=== PATIENT | male | born 1970 | race African-American/Black ===

== ENCOUNTER 2021-11-02 10:40 | Emergency (ER) | payer SELFPAY ==
[2021-11-02] MEDS ORDERED: predniSONE 20 MG TAB ONE (12:29)
[2021-11-02] MEDS ORDERED: Famotidine 20 MG TAB ONE (12:29)
== END 2021-11-02 12:52 | disposition home or self-care (01) ==
LOC: ERS 10:40
DX: L25.9 Unspecified contact dermatitis, unspecified cause (principal)
CPT/HCPCS: 99283; J7512

== ENCOUNTER 2021-12-15 22:07 | Emergency (ER) | payer SELFPAY ==
[2021-12-15 23:11] LABS: #Basophils 0.1 thou/uL (0.0-0.2); #Eosinphils 0.2 thou/uL (0.0-0.7); #Lymphocytes 2.6 thou/uL (1.20-3.40); #Monocytes 1.1 thou/uL (0.11-0.59); #Neutrophils 7.5 thou/uL (1.40-6.50); %Eosinophils 2.1 % (0.0-10.0); %Lymphocytes 22.6 % (21.0-51.0); %Monocytes 9.2 % (0.0-10.0); %Neutrophils 65.2 % (42.0-75.0); Hemoglobin 14.2 g/dL (14.0-18.0); Mean Corpuscular HGB CONC 32.3 g/dL (32.0-36.0); Mean Corpuscular Volume 89.7 fL (78.0-98.0); Mean Platelet Volume 6.7 fL (7.4-10.4); Platelet Count 282 thou/uL (130-400); RBC Distribution Width 12.9 % (11.5-14.5); Red Blood Cell (RBC) Count 4.91 mill/uL (4.70-6.10); White Blood Cell (WBC) Count 11.6 thou/uL (4.8-10.8)
[2021-12-16 00:41] LABS: ALT (SGPT) 29 U/L (8-55); AST (SGOT) 31 U/L (5-34); Albumin 3.9 g/dL (3.5-5.0); Alkaline Phosphatase 81 U/L (40-110); Anion Gap 15 mmol/L (10-20); BUN (Urea Nitrogen) 16 mg/dL (8.9-20.6); Bilirubin, Total 0.4 mg/dL (0.2-1.2); Calc. Creatinine Clearance 0 mL/min (70-130); Calcium 9.2 mg/dL (7.8-10.44); Carbon Dioxide 22 mmol/L (22-29); Chloride 107 mmol/L (98-107); Globulin 2.7 g/dL (2.4-3.5); Glucose 99 mg/dL (70-105); Potassium 4.1 mmol/L (3.5-5.1); Protein, Total 6.6 g/dL (6.0-8.3); Sodium 140 mmol/L (136-145)
== END 2021-12-16 01:03 | disposition home or self-care (01) ==
LOC: ERS 22:07
DX: E86.0 Dehydration (principal)
CPT/HCPCS: 36415; 71045; 80053; 84484; 85025; 93005

== ENCOUNTER 2023-04-13 17:54 | Emergency (ER) | payer SELFPAY | END 2023-04-13 18:34 | disposition home or self-care (01) | LOC: ERS 17:54 | DX: T30.4 Corrosion of unspecified body region, unspecified degree (principal); R21 Rash and other nonspecific skin eruption; X58.XXXA Exposure to other specified factors, initial encounter | CPT/HCPCS: 99282 ==

== ENCOUNTER 2023-11-23 11:11 | Emergency (ER) | payer OTHER ==
[2023-11-23] MEDS ORDERED: Ketorolac Tromethamine 30 MG (1 mL) VIAL ONE (12:03)
[2023-11-23] MEDS ORDERED: Lidocaine 4% Patch TD SCH (12:30)
[2023-11-23] MEDS ORDERED: Transdermal Patch Removal TOP SCH (21:00)
== END 2023-11-23 12:10 | disposition home or self-care (01) ==
LOC: ERS 11:11
DX: M54.12 Radiculopathy, cervical region (principal); E11.9 Type 2 diabetes mellitus without complications
CPT/HCPCS: 96372; 99282; J1885